=== PATIENT | male | born 1995 | race Caucasian/White ===

== ENCOUNTER 2018-08-18 19:38 | Emergency (ER) | payer OTHER ==
[2018-08-18] MEDS ORDERED: KETOROLAC TROMETHAMINE 60 MG/2 ML SDV IM ONE (20:03)
--- NOTE | 2018-08-18 20:11 | ER Document Report ---
ED Medical Screen (RME) - General Chief Complaint: Possible Kidney Stone Stated Complaint: FLANK PAIN Time Seen by Provider: 08/18/18 20:03 Primary Care Provider: DARLIN KIRK MD [Primary Care Provider] - Follow up as needed Mode of Arrival: Ambulatory Information source: Patient Notes: 22-year-old male presented to ED for complaint of right flank that started suddenly at 4 PM. He states he has not had any nausea or vomiting. 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 He went to the urgent care and they did a urine which was positive for blood and protein. He was sent to the emergency room without given any medications. They told him to just come to the emergency room to be evaluated for a kidney stone. He states he has never had a kidney stone. He denies smoking drinking or doing any drugs. He does live with his mother and father. I have greeted and performed a rapid initial assessment of this patient. A comprehensive ED assessment and evaluation of the patient, analysis of test results and completion of medical decision making process will be conducted by an additional ED providers. Dictation of this chart was performed using voice recognition software; therefore, there may be some unintended grammatical errors. TRAVEL OUTSIDE OF THE [place] IN LAST 30 DAYS: No Physical Exam - Vital signs Vitals: Temp Pulse Resp BP Pulse Ox 97.9 F 70 20 126/86 H 99 08/18/18 19:44 08/18/18 19:44 08/18/18 19:44 08/18/18 19:44 08/18/18 19:44 Course - Vital Signs Vital signs: Temp Pulse Resp BP Pulse Ox 97.9 F 70 20 126/86 H 99 08/18/18 19:44 08/18/18 19:44 08/18/18 19:44 08/18/18 19:44 08/18/18 19:44 Doctor's Discharge - Discharge Referrals: DARLIN KIRK MD [Primary Care Provider] - Follow up as needed
--- NOTE | 2018-08-18 20:56 | RADIOLOGY REPORT (SQ) ---
EXAM DESCRIPTION: US RETROPERITONEUM COMPLETED DATE/TME: 08/18/2018 20:07 CLINICAL HISTORY: 22 years Male Right CVA tenderness, right flank pain and nausea COMPARISON: None. TECHNIQUE: Transabdominal grayscale imaging performed to evaluate the kidneys and urinary bladder. FINDINGS: Urinary bladder is incompletely distended. Right kidney measures 10.9 x 5.4 cm. There is mild right hydronephrosis. Left kidney measures 10.4 x 6.2 cm. No significant hydronephrosis is noted. Neither ureteral jet is identified. IMPRESSION: Right hydronephrosis Incompletely distended urinary bladder
[2018-08-18 22:46] LABS: AMORPHOUS SEDIMENT,URINE TRACE /HPF; APPEARANCE,URINE CLOUDY; BILIRUBIN,URINE NEGATIVE (NEGATIVE); COLOR,URINE AMBER; GLUCOSE, URINE NEGATIVE (NEGATIVE); KETONES,URINE TRACE mg/dL (NEGATIVE); LEUKOCYTE ESTERASE,URINE NEGATIVE (NEGATIVE); NITRITE,URINE NEGATIVE (NEGATIVE); PROTEIN,URINE 100 mg/dL (NEGATIVE); UROBILINOGEN,URINE NEGATIVE mg/dL (<2.0)
[2018-08-19] MEDS ORDERED: HYDROCODONE/ACETAMINOPHEN 5-325 MG (6 TAB/ER DISP) PO PRN (00:04)
[2018-08-19 00:37] VITALS: BP 134/92
--- NOTE | 2018-08-19 07:27 | ER Document Report ---
Entered by DEEDEE HAILE SCRIBE 08/19/18 0004 Acting as scribe for:YOLANDE GUALLPA DO ED General - General Chief Complaint: Possible Kidney Stone Stated Complaint: FLANK PAIN Time Seen by Provider: 08/18/18 20:03 Primary Care Provider: DARLIN KIRK MD [COMMUNITY BASED STAFF] - Follow up as needed ARMINDA BOB MD [NO LOCAL MD] - Follow up as needed Mode of Arrival: Ambulatory Information source: Patient Notes: Patient is a 22 year old male with no significant past medical history, presents to the emergency department complaining of right lower back pain onset yesterday evening. Patient states around 1600, while at work, he has a sudden onset of sharp, right lower back pain. He states the pain is exacerbated with walking and deep breathing. He describes the pain has "excruciating, worse pain I've ever had". He also complains of some abdominal pain and dark urine. He denies any fevers or diarrhea. TRAVEL OUTSIDE OF THE [place] IN LAST 30 DAYS: No Past Medical History - General Information source: Patient - Social History Smoking Status: Current Every Day Smoker Cigarette use (# per day): No - Vapes. Chew tobacco use (# tins/day): No Frequency of alcohol use: Occasional Drug Abuse: None Family History: Reviewed & Not Pertinent Patient has suicidal ideation: No Patient has homicidal ideation: No Review of Systems - Review of Systems Constitutional: No symptoms reported EENT: No symptoms reported Cardiovascular: No symptoms reported Respiratory: No symptoms reported Gastrointestinal: See HPI, Abdominal pain Genitourinary: See HPI Male Genitourinary: No symptoms reported Musculoskeletal: See HPI, Back pain Skin: No symptoms reported Hematologic/Lymphatic: No symptoms reported Neurological/Psychological: No symptoms reported -: Yes All other systems reviewed and negative Physical Exam - Vital signs Vitals: Temp Pulse Resp BP Pulse Ox 97.9 F 70 20 126/86 H 99 08/18/18 19:44 08/18/18 19:44 08/18/18 19:44 08/18/18 19:44 08/18/18 19:44 - Notes Notes: GENERAL: Alert, interacts well. No acute distress. HEAD: Normocephalic, atraumatic. EYES: Pupils equal, round, and reactive to light. Extraocular movements intact. ENT: Oral mucosa moist, tongue midline. NECK: Full range of motion. Supple. Trachea midline. LUNGS: Clear to auscultation bilaterally, no wheezes, rales, or rhonchi. No respiratory distress. HEART: Regular rate and rhythm. No murmurs, gallops, or rubs. ABDOMEN: Soft, non-tender. Non-distended. Bowel sounds present in all 4 quadrants. No guarding, rigidity, or rebound. EXTREMITIES: Moves all 4 extremities spontaneously. NEUROLOGICAL: Alert and oriented x3. Normal speech. PSYCH: Normal affect, normal mood. SKIN: Warm, dry, normal turgor. No rashes or lesions noted. BACK: No CVA tenderness to percussion. Course - Re-evaluation Re-evalutation: 08/18/18 23:59 Urinalysis shows trace ketones, large blood, greater than 182 RBCs, urine culture is pending, renal ultrasound shows mild right hydronephrosis. History and physical examination are consistent with right ureterolithiasis. Patient has a family history as well. Discussed risks and benefits of a CAT scan, at this point they are agreeable to not getting a CT scan. If patient's pain continues for more than 2 to 3 days, he develops fever or vomiting or intract able pain he will return to the emergency department and we will consider a CAT scan. Otherwise follow-up as an outpatient with urology. - Vital Signs Vital signs: Temp Pulse Resp BP Pulse Ox 97.8 F 65 16 134/92 H 100 08/19/18 00:34 08/19/18 00:34 08/19/18 00:34 08/19/18 00:34 08/19/18 00:34 - Laboratory Laboratory results interpreted by me: 08/18/18 20:05 Urine Protein 100 H Urine Ketones TRACE H Urine Blood LARGE H Discharge - Discharge Clinical Impression: Right ureteral stone Condition: Stable Disposition: HOME, SELF-CARE Additional Instructions: Kidney Stone You are passing or have passed a kidney stone. These stones are usually due to increased calcium or uric acid concentrations in your urine. Stones w ithin the kidney itself are not painful. The pain occurs as the stone leaves the kidney to pass down the long tube, called the ureter, leading to the bladder. If the stone is small, it will usually pass by itself. Most patients can pass the stone at home. You will usually receive medications for pain, nausea or vomiting, and sometimes a medication to assist in passing the kidney stone. However, if the pain is very severe or if vomiting prevents you from taking oral pain medications, you may need to return for further treatment. Drink three or four quarts of fluids per day. You will be given pain medication (if needed) and urine strainers. Strain all your urine to see if the stone passes. If your doctor has asked you to bring the stone in for analysis, return with the stone once it has passed. Return if pain or vomiting become severe, if you develop a high fever, if you are unable to pass your urine, or if other unusual symptoms occur. Please take ibuprofen 800 mg every 8 hours to help decrease your pain. If you continue to have pain despite taking this medication you may use the Percocet 1 tablet every 4 hours as needed for severe breakthrough pain. I have also prescribed you Zofran and Phenergan to help with the nausea. You should also take Pyridium, this is the same thing as Azo which is available [id number], it will help to numb your kidneys, ureters and bladder to decrease the pain as the stone moves. Finally we have prescribed Flomax, typically this is used to treat prostate problems but in this case may use it to help expand your ureters to help the kidney stone will pass more quickly. Please return to the emergency department for worsening pain, temperature of 100.4 greater or any new or concerning symptoms. Narcotics such as Percocet or [place] can cause constipation and nausea. Please use MiraLAX 1 scoop dissolved in a glass of water once a day while taking narcotics to decrease the risk of constipation. They can also cause nausea, please take them with food. Do not drive while taking narcotics. Prescriptions: Ondansetron [Zofran Odt 4 mg Tablet] 1 - 2 tab PO Q4H PRN #15 tab.rapdis PRN Reason: For Nausea/Vomiting Oxycodone HCl/Acetaminophen [Percocet 5-325 mg Tablet] 1 - 2 tab PO Q4H PRN #15 tablet PRN Reason: Phenazopyridine HCl [Pyridium 200 mg Tablet] 200 mg PO TID #15 tablet Promethazine HCl [Phenergan 25 mg Tablet] 1 - 2 tab PO Q6H PRN #15 tablet PRN Reason: Tamsulosin HCl [Flomax 0.4 mg Cap.sr] 0.4 mg PO DAILY #7 cap.sr.24h Forms: Return to Work Referrals: DARLIN KIRK MD [COMMUNITY BASED STAFF] - Follow up as needed ARMINDA BOB MD [NO LOCAL MD] - Follow up as needed I personally performed the services described in the documentation, reviewed and edited the documentation which was dictated to the scribe in my presence, and it accurately records my words and actions.
== END 2018-08-19 00:34 | disposition home or self-care (01) ==
LOC: ER 19:38
DX: N20.1 Calculus of ureter (principal); R10.9 Unspecified abdominal pain; M54.5 Low back pain; F17.200 Nicotine dependence, unspecified, uncomplicated
CPT/HCPCS: 99284; 96374; 87086; 81001; 76770; J1885